=== PATIENT | male | born 1955 ===

== ENCOUNTER 2020-02-25 17:37 | Inpatient (IN) | payer MEDICARE ==
[2020-02-25 22:46] VITALS: BP 120/81
[2020-02-25] MEDS ORDERED: Acetaminophen 500 MG TAB PO PRN (22:46)
[2020-02-25] MEDS ORDERED: Maalox 30 mL Cup PO PRN (22:46)
[2020-02-25] MEDS ORDERED: Magnesium Hydroxide (MOM) 30 mL UDC PO PRN (22:46)
[2020-02-26] MEDS: Escitalopram Oxalate 5 mg Tab PO SCH (09:09)
[2020-02-26] MEDS: Multivitamin Tab PO SCH (09:10)
--- NOTE | 2020-02-26 09:59 | Psychiatric Evaluation ---
DATE OF SERVICE: 02/26/2020 HISTORY OF PRESENT ILLNESS: A 64-year-old male coming in from [facility], medically cleared, resident from a board and care, apparently hearing impaired as well, chronic depression, anxiety, possible schizophrenia. The patient noting severe depression. When I go see him, unfortunately, does not engage with me whatsoever. I tried to wake him up, but he tells me to go away, difficult [id number] unfortunately, noted to be somewhat irritable, not really conducive to interview, concerns in regard to his severe depressive symptoms, melancholy, concerns for suicide, suicidality. Although, the patient is ambivalent about these symptoms, apparent history of chronic mental illness. PAST PSYCHIATRIC HISTORY: As noted, depression, anxiety, schizophrenia. The patient was making some vague notions about suicide, stating he wants to be home in 3 days. The patient has been to [facility] in the past. FAMILY HISTORY: Unclear. SOCIAL HISTORY: Details unclear, but coming from a board and care. They are accepting him back upon further clearance and stabilization. Medications were noted. MENTAL STATUS EXAMINATION: Stated age, unkempt, little eye contact, not engaging with me, concerns about suicide, suicidality. Unclear psychotic symptoms. Insight diminished. DIAGNOSES: Major depression, unspecified; schizophrenia per documentation; anxiety, unspecified. MEDICAL: Please see full H and P. ESTIMATED LENGTH OF STAY: 7-10 days. ASSESSMENT: The patient requiring hospitalization, depressed, concerns about suicide, suicidality, also chronically mentally ill. PLAN: We will adjust medications. TREATMENT PLAN: Includes group as well as milieu therapy, increase collateral. CONDITIONS FOR DISCHARGE: Improved mood, improved affect, better control of mood symptoms. JOB# [id number]
--- NOTE | 2020-02-26 10:36 | History and Physical ---
History of Present Illness - HPI Chief Complaint: 64 y/o was transferred from [facility] for medical clearance. HPI: 64 y/o was transferred from [facility] for medical clearance. Patient was admitted to [facility] for evaluation due to suicidal ideation and severe depression. Patient was at [facility] and had been very depressed and was making comments about suicide. Patient has history Major depressive disorder, Anxiety, Diabetes, Bipolar disorder and Hearing impaired. Patient had a Psych consult and was diagnosed with Schizophrenia, Major depression, Anxiety, history of Bipolar disorder and history of Diabetes.I will follow, treat and monitor patient. Patient will continue current treatment plan as ordered. Vital Signs: Last Vital Signs Temp 98.4 F 02/26/20 06:07 Pulse 66 02/26/20 06:07 Resp 18 02/26/20 06:07 BP 132/78 02/26/20 06:07 Pulse Ox 96 02/26/20 06:07 Past Medical History Cardiovascular: Report: No Pertinent Hx Pulmonary: Report: No Pertinent Hx CREDIT RISK MANAGEMENT DIRECTOR: Report: No Pertinent Hx GI: Report: No Pertinent Hx Psych: Report: Anxiety, Bipolar, Depression, Schizophrenia Musculoskeletal: Report: No Pertinent Hx Rheumatologic: Report: No pertinent Hx Infectious Disease: Report: No Pertinent Hx Renal/: Report: No Pertinent Hx Endocrine: Report: Diabetes Dermatology: Report: No Pertinent Hx - Past Surgical History Past Surgical History: No pertinent Hx Family Medical History - Family Member Mother History Unknown: Yes Ethnicity: Unknown Social History Smoke: No Alcohol: None Drugs: None Lives: Other ([facility].) Health Maintenance Health Maintenance: Other (See chart.) - Medications Home Medications: Home Medication Medication Instructions Recorded Type Docusate Sodium [Colace] 100 mg PO BID 02/26/20 History Escitalopram Oxalate [Lexapro] 5 mg PO DAILY 02/26/20 History Oxybutynin Chloride [Oxybutynin 5 mg PO DAILY 02/26/20 History Chloride*] Pantoprazole Sodium [Protonix] 40 mg PO DAILY 02/26/20 History QUEtiapine Fumarate [SEROquel] 200 mg PO DAILY 02/26/20 History QUEtiapine Fumarate [SEROquel] 400 mg PO HS 02/26/20 History Sucralfate 1 gm PO TID 02/26/20 History metFORMIN [Glucophage] 500 mg PO BID 08/29/20 History Other Medications: Please see medication reconciliation sheet. - Allergies Allergies/Adverse Reactions: Allergies Allergy/AdvReac Type Severity Reaction Status Date / Time No Known Allergies Allergy Verified 02/25/20 22:46 Review of Systems - Review of Systems Review of Systems: Patient is withdrawn, staying to himself, appears very sad, needs closely monitoring. Constitutional: Report: No Significant Eyes: Report: No Significant ENT: Report: No Significant Respiratory: Report: No Significant Cardiovascular: Report: No Significant Gastrointestinal: Report: No Significant Genitourinary: Report: No Significant Musculoskeletal: Report: No Significant Skin: Report: No Significant Neurological: Report: Other (Very depressed mood and affect.) Physical Exam - Physical Exam HEENT: Report: Ears Nose Throat within normal limits Neck: Report: Within normal limits Cardiovascular Systems: Report: +s1/s2 noted, Regular, Rate and Rhythm Respiratory: Report: Breath Sounds are within normal limits Abdomen: Report: Non-tender to palpation Back: Report: Inspection of back is within normal limits. Extremities: Report: Non-tender to palpation. Skin: Report: Color of skin is within normal limits Neuro/Psych: Report: Depressed affect - Lab Results All Lab Results last 24 hours: Please see lab results. - Assessment Assessment: Schizophrenia. Major depression. Anxiety. History of Bipolar disorder. History of Diabetes. Hearing impaired. - Plan Plan: Psych management as per Psych. Monitor vitals, labs, diabetic diet. Continue present meds as directed. Accu-check daily, continue DM meds as directed. Supportive care. Safety precaution/Fall precaution. Continue current treatment plan as ordered. Cranial Nerve Assessment - CRANIAL NERVES alcohol swab:: Yes Distinguishes movements in peripheral field.:: Yes up, down, sideways:: Yes on forehead, cheeks and chin, chews symmetrically:: Yes FACIAL VII: upper: Frowns Symmetrically:: Yes FACIAL VII: Lower: Smiles Symmetrically:: Yes both ears:: No GLOSS-PHARYNGEAL IX: Has gag reflex:: Yes VAGUS X: Can make guttural sounds:: Yes ACCESSORY XI: Shrugs shoulders symmetrically:: Yes tremors or fasciculation's:: Yes - MOTOR spasticity, cogwheel, atrophy, tremor, asterixis, other: Yes - COORDINATION Finger to nose, heel to nicholson, BUCK, gait, Romberg: Yes - SENSORY signs, Brudzinski, Kernig, neck rigidity:: Yes - REFLEXES Brachioradials Right:: Yes Brachioradials Left:: Yes Biceps Right:: Yes Biceps Left:: Yes Triceps Right:: Yes Triceps Left:: Yes Knee Right:: Yes Knee Left:: Yes Ankle Right:: Yes Ankle Left:: Yes Babinski Right:: Yes Babinski Left:: Yes
[2020-02-27 07:19] LABS: A1C 7.2 % (4.8-5.6)
[2020-02-27] MEDS: Escitalopram Oxalate 5 mg Tab PO SCH (09:03)
[2020-02-27] MEDS: Pantoprazole 40 mg EC Tab PO SCH (09:03)
[2020-02-27] MEDS: Multivitamin Tab PO SCH (09:03)
--- NOTE | 2020-02-27 17:12 | Progress Notes ---
DATE: 02/27/2020 SUBJECTIVE: A 64-year-old male coming into [facility] due to chronic depression and schizophrenia. The patient noted to be irritable on exam, upset, slept about 9-10 hours, took Ambien, somewhat sleepy this morning. Staff noting he is frustrated, upset, gets irritable, labile, still with ongoing mood swings. Medications reviewed. Labs reviewed. Vitals were reviewed. Currently on dosing of Seroquel, Lexapro. ASSESSMENT: Difficult [id number], the patient not wanting to engage with me, somewhat tired this morning, sleepy, asked me to come back later. He does have some hearing impairment. The patient having some dietary restrictions, refusing some of his meals, likely we will get Nutrition consult during the week. PLAN: We will continue inpatient monitoring, ongoing symptoms as noted. [facility]# [id number]
[2020-02-28] MEDS: Pantoprazole 40 mg EC Tab PO SCH (08:19)
[2020-02-28] MEDS: Escitalopram Oxalate 5 mg Tab PO SCH (08:19)
[2020-02-28] MEDS: Multivitamin Tab PO SCH (08:19)
--- NOTE | 2020-02-28 22:45 | Progress Notes ---
DATE: 02/28/2020 Case was discussed with staff of the patient and reviewed records. Covering for Dr. Cortes. Also reviewed lab work and medications. A 64-year-old male who came from [facility] after medically cleared. He was in a board and care. The patient is hearing impaired as well with chronic depression and anxiety, possible schizophrenia. He has been very depressed. He is unable to engage; however, he is able to express himself by writing ____ he wants to go home. He reports he sleeps well and eats well. He was able to tell me how he did end up here. He was irritable, not well participating in any meaningful conversation. There is concern about his suicidality as he has been depressed and overwhelmed. The patient with history of chronic mental illness, history of anxiety, schizophrenia, depression, making vague statements about suicide that he wants to be home in 3 days. The patient was being hospitalized at [facility] in the past. The patient was diagnosed with depression. The patient was started on Lexapro 5 mg daily. The patient continues to look disheveled, disorganized, and internally preoccupied. He is also on Seroquel 200 mg in the morning and 400 mg at bedtime. I will be increasing his Lexapro to 10 mg a day. No side effects to the medication, no sedation, no nausea, and no extrapyramidal symptoms. We will continue to work with the patient in group therapy, milieu therapy, and adjust the medication as needed. JOB# [id number]
[2020-02-29] MEDS: Pantoprazole 40 mg EC Tab PO SCH (08:43)
[2020-02-29] MEDS: Multivitamin Tab PO SCH (08:43)
[2020-02-29] MEDS ORDERED: Menthol/Zinc Oxide Oint 113gm Tube TP PRN (18:09)
--- NOTE | 2020-02-29 18:31 | Progress Notes ---
DATE: 02/29/2020 Case was discussed with staff of the patient, reviewed records. The patient appears to be depressed. Continues to be unable to engage in a meaningful conversation. He is best if he can write. He wants to go home. He sleeps well. He eats well. No side effects with the medication, no sedation, no nausea, no extrapyramidal symptoms. He is currently on Seroquel and Lexapro with no side effects. We will continue outpatient group therapy, milieu therapy, adjust medication as needed. JOB# [id number]
[2020-03-01] MEDS: Pantoprazole 40 mg EC Tab PO SCH (08:58)
[2020-03-01] MEDS: Multivitamin Tab PO SCH (08:58)
--- NOTE | 2020-03-01 09:52 | Internal Medicine Prog Note ---
Internal Medicine Subjective - Subjective Service Date: 03/01/20 Patient seen and examined:: with staff, chart reviewed Patient is:: awake, verbal, other (Very depressed and anxiety.) Patient Complaints of:: other (Hx of Schizophrenia, Depression and Anxiety.) Per staff patient has:: no adverse event, no episodes of fall Internal Medicine Objective - Results Recent Labs: Laboratory Last Values Hemoglobin A1c 7.2 % (4.8-5.6) H 02/26/20 11:00 Triglycerides 117 mg/dL (30-150) 02/26/20 11:00 Cholesterol 117 mg/dL (<200) 02/26/20 11:00 LDL Cholesterol 69 mg/dL (0-129) 02/26/20 11:00 HDL Cholesterol 40 mg/dL (>45) L 02/26/20 11:00 - Physical Exam Vitals and I&O: Vital Signs Temp 97.6 F 03/01/20 06:41 Pulse 74 03/01/20 06:41 Resp 19 03/01/20 06:41 BP 116/65 03/01/20 06:41 Pulse Ox 97 03/01/20 06:41 Intake & Output 02/29/20 03/01/20 03/01/20 18:59 06:59 18:59 Intake Total 800 120 Balance 800 120 Intake: Oral 800 120 Other: # Voids 4 3 # Bowel Movements 0 Active Medications: Current Medications Acetaminophen (Tylenol) 650 mg PO Q4H PRN PRN Reason: Pain (Mild 1-3) Stop: 04/25/20 22:45 Acetaminophen (Tylenol Extra Strength) 1,000 mg PO Q6H PRN PRN Reason: Pain (Moderate 4-6) Stop: 04/25/20 22:45 Al Hydrox/Mg Hydrox/Simethicone (Maalox) 30 ml PO Q4HR PRN PRN Reason: GI DISTRESS Stop: 04/25/20 22:45 Last Admin: 02/28/20 03:50 Dose: 30 ml Calamine/Phenol (Calmoseptine) 1 appl TP QID PRN PRN Reason: Skin Irritation Stop: 04/29/20 18:08 Docusate Sodium (Colace) 100 mg PO BID CHERRI Stop: 04/26/20 16:59 Last Admin: 03/01/20 08:57 Dose: 100 mg Escitalopram Oxalate (Lexapro) 10 mg PO DAILY [facility]; Protocol Stop: 04/29/20 08:59 Last Admin: 03/01/20 08:57 Dose: 10 mg Ibuprofen (Motrin) 400 mg PO Q4H PRN PRN Reason: Pain (Severe 7-10) Stop: 04/25/20 22:45 Lorazepam (Ativan) 0.5 mg PO Q4HR PRN; Protocol PRN Reason: Anxiety Stop: 03/26/20 22:45 Last Admin: 02/26/20 03:30 Dose: 0.5 mg Magnesium Hydroxide (Milk Of Magnesia) 30 ml PO HS PRN PRN Reason: Constipation Metformin HCl (Glucophage) 500 mg PO BID CHERRI Stop: 04/26/20 16:59 Last Admin: 03/01/20 08:58 Dose: 500 mg Multivitamins/Vitamin C (Theragran) 1 tab PO DAILY CHERRI Stop: 04/26/20 08:59 Last Admin: 03/01/20 08:58 Dose: 1 tab Oxybutynin Chloride (Ditropan) 5 mg PO DAILY CHERRI Stop: 04/27/20 08:59 Last Admin: 03/01/20 08:58 Dose: 5 mg Pantoprazole Sodium (Protonix) 40 mg PO DAILY CHERRI Stop: 04/27/20 08:59 Last Admin: 03/01/20 08:58 Dose: 40 mg Quetiapine Fumarate (Seroquel) 200 mg PO DAILY [facility]; Protocol Stop: 04/26/20 08:59 Last Admin: 03/01/20 08:58 Dose: 200 mg Quetiapine Fumarate (Seroquel) 400 mg PO HS CHERRI; Protocol Stop: 04/26/20 20:59 Last Admin: 02/29/20 20:19 Dose: 400 mg Zolpidem Tartrate (Ambien) 5 mg PO HS PRN PRN Reason: Insomnia Stop: 04/25/20 22:45 Last Admin: 02/28/20 21:08 Dose: 5 mg Physical Exam: Patient is very depressed and anxious, will be monitored closely. General: weak, other (Irritable and agitated.) HEENT: NC/AT Neck: Supple, No JVD Lungs: CTAB Cardiovascular: RRR, Normal S1, Normal S2 Abdomen: soft, non-tender Extremities: clear Neurological: no change, disorganized Internal Medicine Assmt/Plan - Assessment Assessment: Schizophrenia. Major depression. Anxiety. History of Bipolar disorder. History of Diabetes. Hearing impaired. - Plan Plan: Psych management as per Psych. Monitor vitals, labs, diabetic diet. Continue present meds as directed. Accu-check daily, continue DM meds as directed. Supportive care. Safety precaution/Fall precaution. Continue current treatment plan as ordered. Nutritional Asmnt/Malnutr-PDOC - Dietary Evaluation Malnutrition Findings (Please click <Entered> for more info): Nutritional Asmnt/Malnutrition Start: 02/28/20 12: 53 Text: Status: Complete Freq: Protocol: Document 02/28/20 12:54 MILAN (Rec: 02/28/20 12:57 MILAN [id number] [id number]) Nutritional Asmnt/Malnutrition Patient General Information Nutritional Screening Moderate Risk Diagnosis Suicidal Ideations Pertinent Medical Hx/Surgical Hx Schizophrenia, Major Depression, Anxiety, Bipolar Disorder, Diabetes Subjective Information Pt is a 65-year-old male admitted on 02/24 d/t suicidal ideations and severe depression. Pt is eating an estimated 70% of meals since admit date (x2 days) Per Meal/ Nutrition Activity Record. Dietary is currently providing an estimated 1700 kcals and 70 gm Pro, per Pt PO intake this is providing an estimated 1200 kcals and 50gm Pro to meet 62% kcal and 77% Pro needs. Visited pt in the dining room, his speech is garbled and hard to understand , pt can answer questions and make needs known via writing. Pt medical chart makes no mention of Renal disease and pt denies any kidney related issues. Spoke with nurse Kaur regarding diet Rx recommendation. This will increase available caloric options and intake to meet estimated nutritional needs. Recommend [facility] diet. Anthropometrics HT: 6 FT WT: 173 LB (78.64 kg) BMI: 23.53 (normal) GI/ Skin Integrity GI: WNL, Soft, Non-tender BM: Not Noted I/O: 1680/Not Noted Skin: WNL, Intact Misha: 18 Diet Order: Renal, NCS, Chopped Estimated Energy Needs: ( Geriatric, CBW) 8421-7598 kcals (25-30 kcals/ kg) 80-95g Pro (1.0-1.2g/kg) 4218-7700 ml (25-30 ml/kg) Current Diet Order/ Nutrition Support Renal, NCS, Chopped Patient / S.O Can't verbalize diet edu Pertinent Medications Maalox (PRN), Colace, MOM (PRN ), Glucophage, Theragran, Protonix Pertinent Labs 02/25: A1c 7.2%, HDL 40 Nutritional Hx/Data Height 1.83 m Height (Calculated Centimeters) 182.9 Current Weight (lbs) 78.471 kg Weight (Calculated Kilograms) 78.5 Weight (Calculated Grams) 75549.5 [place] Body Weight 178 LB (80.91 kg) % [place] Body Weight 97 Body Mass Index (BMI) 23.4 Weight Status Approriate GI Symptoms Last BM Not Noted Skin Integrity/Comment: Skin: WNL, Intact Misha: 18 Estimated Nutritional Goals BEE in Kcals: Using Current wt Calories/Kcals/Kg 25-30 Kcals Calculated 8753-7268 Protein: Using Current wt Protein g/k.0-1.2 Protein Calculated 80-95 Fluid: ml 1363-3014 ml (25-30 ml/kg) Nutritional Problem 1. Problem Problem Impaired nutrient utilization Etiology r/t endocrine dysfunction Signs/Symptoms: aeb (02/25) A1c 7.2%. Malnutrition Related to Morbid Obesity Malnutrition related to morbid obesity No Intervention/Recommendation Comments [facility]. Expected Outcomes/Goals Expected Outcomes/Goals 1.PO intake to meet 75% of estimated nutritional needs. 2.Monitor PO intake, wt, nutrition related labs, and skin integrity. 3.F/U as low risk in 7-10 days , 03/06-03/09.
--- NOTE | 2020-03-01 14:18 | Progress Notes ---
DATE: 03/01/2020 Case was discussed with staff of the patient, reviewed records. The patient continues to be frustrated, easily agitated, continues to have poor insight, continues to be needing redirection. He believes he does not have a psychiatric issue ; however, he came on psychotropic medication, that mean, he has been in treatment before, unable to express himself very well, easily frustrated. No side effects with the medication, no sedation, no nausea, no extrapyramidal symptoms. We will continue outpatient group therapy, milieu therapy, adjust medication as needed. JOB# [id number] WILLIAM
[2020-03-02] MEDS: Multivitamin Tab PO SCH (08:56)
[2020-03-02] MEDS: Pantoprazole 40 mg EC Tab PO SCH (08:57)
--- NOTE | 2020-03-02 10:29 | Internal Medicine Prog Note ---
Internal Medicine Subjective - Subjective Service Date: 03/02/20 Patient seen and examined:: with staff, chart reviewed Patient is:: awake, verbal, other (Very depressed and anxiety.) Patient Complaints of:: other (Hx of Schizophrenia, Depression and Anxiety.) Per staff patient has:: no adverse event, no episodes of fall Internal Medicine Objective - Results Recent Labs: Laboratory Last Values Hemoglobin A1c 7.2 % (4.8-5.6) H 02/26/20 11:00 Triglycerides 117 mg/dL (30-150) 02/26/20 11:00 Cholesterol 117 mg/dL (<200) 02/26/20 11:00 LDL Cholesterol 69 mg/dL (0-129) 02/26/20 11:00 HDL Cholesterol 40 mg/dL (>45) L 02/26/20 11:00 - Physical Exam Vitals and I&O: Vital Signs Temp 97.5 F 03/02/20 05:51 Pulse 56 03/02/20 05:51 Resp 18 03/02/20 05:51 BP 136/77 03/02/20 05:51 Pulse Ox 97 03/02/20 05:51 Intake & Output 03/01/20 03/02/20 03/02/20 18:59 06:59 18:59 Intake Total 240 Balance 240 Intake: Oral 240 Other: # Voids 2 Active Medications: Current Medications Acetaminophen (Tylenol) 650 mg PO Q4H PRN PRN Reason: Pain (Mild 1-3) Stop: 04/25/20 22:45 Acetaminophen (Tylenol Extra Strength) 1,000 mg PO Q6H PRN PRN Reason: Pain (Moderate 4-6) Stop: 04/25/20 22:45 Al Hydrox/Mg Hydrox/Simethicone (Maalox) 30 ml PO Q4HR PRN PRN Reason: GI DISTRESS Stop: 04/25/20 22:45 Last Admin: 02/28/20 03:50 Dose: 30 ml Calamine/Phenol (Calmoseptine) 1 appl TP QID PRN PRN Reason: Skin Irritation Stop: 04/29/20 18:08 Docusate Sodium (Colace) 100 mg PO BID CHERRI Stop: 04/26/20 16:59 Last Admin: 03/02/20 08:57 Dose: 100 mg Escitalopram Oxalate (Lexapro) 10 mg PO DAILY [facility]ERRI; Protocol Stop: 04/29/20 08:59 Last Admin: 03/02/20 08:56 Dose: 10 mg Ibuprofen (Motrin) 400 mg PO Q4H PRN PRN Reason: Pain (Severe 7-10) Stop: 04/25/20 22:45 Lorazepam (Ativan) 0.5 mg PO Q4HR PRN; Protocol PRN Reason: Anxiety Stop: 03/26/20 22:45 Last Admin: 02/26/20 03:30 Dose: 0.5 mg Magnesium Hydroxide (Milk Of Magnesia) 30 ml PO HS PRN PRN Reason: Constipation Metformin HCl (Glucophage) 500 mg PO BID CHERRI Stop: 04/26/20 16:59 Last Admin: 03/02/20 08:57 Dose: 500 mg Multivitamins/Vitamin C (Theragran) 1 tab PO DAILY [facility]ERRI Stop: 04/26/20 08:59 Last Admin: 03/02/20 08:56 Dose: 1 tab Oxybutynin Chloride (Ditropan) 5 mg PO DAILY [facility]ERRI Stop: 04/27/20 08:59 Last Admin: 03/02/20 08:57 Dose: 5 mg Pantoprazole Sodium (Protonix) 40 mg PO DAILY CHERRI Stop: 04/27/20 08:59 Last Admin: 03/02/20 08:57 Dose: 40 mg Quetiapine Fumarate (Seroquel) 200 mg PO DAILY [facility]ERRI; Protocol Stop: 04/26/20 08:59 Last Admin: 03/02/20 08:57 Dose: 200 mg Quetiapine Fumarate (Seroquel) 400 mg PO HS CHERRI; Protocol Stop: 04/26/20 20:59 Last Admin: 03/01/20 20:02 Dose: 400 mg Zolpidem Tartrate (Ambien) 5 mg PO HS PRN PRN Reason: Insomnia Stop: 04/25/20 22:45 Last Admin: 02/28/20 21:08 Dose: 5 mg Physical Exam: Patient is easily agitated and having mood swings, will be monitored closely. General: weak, other (Irritable and agitated.) HEENT: NC/AT Neck: Supple, No JVD Lungs: CTAB Cardiovascular: RRR, Normal S1, Normal S2 Abdomen: soft, non-tender Extremities: clear Neurological: no change, disorganized Internal Medicine Assmt/Plan - Assessment Assessment: Schizophrenia. Major depression. Anxiety. History of Bipolar disorder. History of Diabetes. Hearing impaired. - Plan Plan: Psych management as per Psych. Monitor vitals, labs, diabetic diet. Continue present meds as directed. Accu-check daily, continue DM meds as directed. Supportive care. Safety precaution/Fall precaution. Continue current treatment plan as ordered. Nutritional Asmnt/Malnutr-PDOC - Dietary Evaluation Malnutrition Findings (Please click <Entered> for more info): Nutritional Asmnt/Malnutrition Start: 02/28/20 12: 53 Text: Status: Complete Freq: Protocol: Document 02/28/20 12:54 MILAN (Rec: 02/28/20 12:57 MILAN [email or web address] -[id number]) Nutritional Asmnt/Malnutrition Patient General Information Nutritional Screening Moderate Risk Diagnosis Suicidal Ideations Pertinent Medical Hx/Surgical Hx Schizophrenia, Major Depression, Anxiety, Bipolar Disorder, Diabetes Subjective Information Pt is a 65-year-old male admitted on 02/24 d/t suicidal ideations and severe depression. Pt is eating an estimated 70% of meals since admit date (x2 days) Per Meal/ Nutrition Activity Record. Dietary is currently providing an estimated 1700 kcals and 70 gm Pro, per Pt PO intake this is providing an estimated 1200 kcals and 50gm Pro to meet 62% kcal and 77% Pro needs. Visited pt in the dining room, his speech is garbled and hard to understand , pt can answer questions and make needs known via writing. Pt medical chart makes no mention of Renal disease and pt denies any kidney related issues. Spoke with nurse Kaur regarding diet Rx recommendation. This will increase available caloric options and intake to meet estimated nutritional needs. Recommend [facility] diet. Anthropometrics HT: 6 FT WT: 173 LB (78.64 kg) BMI: 23.53 (normal) GI/ Skin Integrity GI: WNL, Soft, Non-tender BM: Not Noted I/O: 1680/Not Noted Skin: WNL, Intact Misha: 18 Diet Order: Renal, NCS, Chopped Estimated Energy Needs: ( Geriatric, CBW) 4247-7420 kcals (25-30 kcals/ kg) 80-95g Pro (1.0-1.2g/kg) 1120-5324 ml (25-30 ml/kg) Current Diet Order/ Nutrition Support Renal, NCS, Chopped Patient / S.O Can't verbalize diet edu Pertinent Medications Maalox (PRN), Colace, MOM (PRN ), Glucophage, Theragran, Protonix Pertinent Labs 02/25: A1c 7.2%, HDL 40 Nutritional Hx/Data Height 1.83 m Height (Calculated Centimeters) 182.9 Current Weight (lbs) 78.471 kg Weight (Calculated Kilograms) 78.5 Weight (Calculated Grams) 96966.5 [place] Body Weight 178 LB (80.91 kg) % [place] Body Weight 97 Body Mass Index (BMI) 23.4 Weight Status Approriate GI Symptoms Last BM Not Noted Skin Integrity/Comment: Skin: WNL, Intact Misha: 18 Estimated Nutritional Goals BEE in Kcals: Using Current wt Calories/Kcals/Kg 25-30 Kcals Calculated 8279-0356 Protein: Using Current wt Protein g/k.0-1.2 Protein Calculated 80-95 Fluid: ml 2298-5231 ml (25-30 ml/kg) Nutritional Problem 1. Problem Problem Impaired nutrient utilization Etiology r/t endocrine dysfunction Signs/Symptoms: aeb (02/25) A1c 7.2%. Malnutrition Related to Morbid Obesity Malnutrition related to morbid obesity No Intervention/Recommendation Comments [facility]. Expected Outcomes/Goals Expected Outcomes/Goals 1.PO intake to meet 75% of estimated nutritional needs. 2.Monitor PO intake, wt, nutrition related labs, and skin integrity. 3.F/U as low risk in 7-10 days , 03/06-03/09.
--- NOTE | 2020-03-02 11:31 | Progress Notes ---
DATE: 03/02/2020 SUBJECTIVE: Case was discussed with staff of the patient, reviewed records. The patient has been staying in bed, continues to have poor insight, unable to make safe plan for self-care, unpredictable, impulsive. He is incontinent of urine. Need help with his ADLs and needs constant redirection. He is unable to speak, but he can write. He is preoccupied. he wants to go home. He continues to look disheveled, disorganized, internally preoccupied. The patient is with a history of schizophrenia; however, he is unable to express his feeling very well, preoccupied with discharge, no side effects with the medication, no sedation, no nausea, no extrapyramidal symptoms. We will continue outpatient group therapy, milieu therapy, and adjust the medication as needed. JOB# [id number] WILLIAM
[2020-03-03] MEDS: Pantoprazole 40 mg EC Tab PO SCH (08:30)
[2020-03-03] MEDS: Multivitamin Tab PO SCH (08:30)
--- NOTE | 2020-03-03 10:46 | Internal Medicine Prog Note ---
Internal Medicine Subjective - Subjective Service Date: 03/03/20 Patient seen and examined:: with staff Patient is:: awake, verbal, other (Very depressed and anxiety.) Patient Complaints of:: other (Hx of Schizophrenia, Depression and Anxiety.) Per staff patient has:: no adverse event, no episodes of fall Internal Medicine Objective - Results Recent Labs: Laboratory Last Values Hemoglobin A1c 7.2 % (4.8-5.6) H 02/26/20 11:00 Triglycerides 117 mg/dL (30-150) 02/26/20 11:00 Cholesterol 117 mg/dL (<200) 02/26/20 11:00 LDL Cholesterol 69 mg/dL (0-129) 02/26/20 11:00 HDL Cholesterol 40 mg/dL (>45) L 02/26/20 11:00 - Physical Exam Vitals and I&O: Vital Signs Temp 98 F 03/03/20 05:55 Pulse 57 03/03/20 05:55 Resp 16 03/03/20 08:00 BP 111/69 03/03/20 05:55 Pulse Ox 94 03/03/20 05:55 Intake & Output 03/02/20 03/03/20 03/03/20 18:59 06:59 18:59 Intake Total 1200 240 Balance 1200 240 Intake: Oral 1200 240 Other: # Voids 1 # Bowel Movements 1 Active Medications: Current Medications Acetaminophen (Tylenol) 650 mg PO Q4H PRN PRN Reason: Pain (Mild 1-3) Stop: 04/25/20 22:45 Acetaminophen (Tylenol Extra Strength) 1,000 mg PO Q6H PRN PRN Reason: Pain (Moderate 4-6) Stop: 04/25/20 22:45 Al Hydrox/Mg Hydrox/Simethicone (Maalox) 30 ml PO Q4HR PRN PRN Reason: GI DISTRESS Stop: 04/25/20 22:45 Last Admin: 02/28/20 03:50 Dose: 30 ml Calamine/Phenol (Calmoseptine) 1 appl TP QID PRN PRN Reason: Skin Irritation Stop: 04/29/20 18:08 Docusate Sodium (Colace) 100 mg PO BID [facility] Stop: 04/26/20 16:59 Last Admin: 03/03/20 08:30 Dose: 100 mg Escitalopram Oxalate (Lexapro) 10 mg PO DAILY [facility]; Protocol Stop: 04/29/20 08:59 Last Admin: 03/03/20 08:30 Dose: 10 mg Ibuprofen (Motrin) 400 mg PO Q4H PRN PRN Reason: Pain (Severe 7-10) Stop: 04/25/20 22:45 Lorazepam (Ativan) 0.5 mg PO Q4HR PRN; Protocol PRN Reason: Anxiety Stop: 03/26/20 22:45 Last Admin: 02/26/20 03:30 Dose: 0.5 mg Magnesium Hydroxide (Milk Of Magnesia) 30 ml PO HS PRN PRN Reason: Constipation Metformin HCl (Glucophage) 500 mg PO BID [facility] Stop: 04/26/20 16:59 Last Admin: 03/03/20 08:30 Dose: 500 mg Multivitamins/Vitamin C (Theragran) 1 tab PO DAILY [facility] Stop: 04/26/20 08:59 Last Admin: 03/03/20 08:30 Dose: 1 tab Oxybutynin Chloride (Ditropan) 5 mg PO DAILY [facility] Stop: 04/27/20 08:59 Last Admin: 03/03/20 08:30 Dose: 5 mg Pantoprazole Sodium (Protonix) 40 mg PO DAILY [facility] Stop: 04/27/20 08:59 Last Admin: 03/03/20 08:30 Dose: 40 mg Quetiapine Fumarate (Seroquel) 200 mg PO DAILY [facility]; Protocol Stop: 04/26/20 08:59 Last Admin: 03/03/20 08:30 Dose: 200 mg Quetiapine Fumarate (Seroquel) 400 mg PO HS [facility]; Protocol Stop: 04/26/20 20:59 Last Admin: 03/02/20 20:13 Dose: 400 mg Zolpidem Tartrate (Ambien) 5 mg PO HS PRN PRN Reason: Insomnia Stop: 04/25/20 22:45 Last Admin: 02/28/20 21:08 Dose: 5 mg Physical Exam: Patient requires assistance with ADLs, remains impulsive, will be monitored closely. General: weak, other (Irritable and agitated.) HEENT: NC/AT Neck: Supple, No JVD Lungs: CTAB Cardiovascular: RRR, Normal S1, Normal S2 Abdomen: soft, non-tender Extremities: clear Neurological: no change, disorganized Internal Medicine Assmt/Plan - Assessment Assessment: Schizophrenia. Major depression. Anxiety. History of Bipolar disorder. History of Diabetes. Hearing impaired. - Plan Plan: Psych management as per Psych. Monitor vitals, labs, diabetic diet. Continue present meds as directed. Accu-check daily, continue DM meds as directed. Supportive care. Safety precaution/Fall precaution. Continue current treatment plan as ordered. Nutritional Asmnt/Malnutr-PDOC - Dietary Evaluation Malnutrition Findings (Please click <Entered> for more info): Nutritional Asmnt/Malnutrition Start: 02/28/20 12: 53 Text: Status: Complete Freq: Protocol: Document 02/28/20 12:54 MILAN (Rec: 02/28/20 12:57 MILAN [email or web address] [id number]) Nutritional Asmnt/Malnutrition Patient General Information Nutritional Screening Moderate Risk Diagnosis Suicidal Ideations Pertinent Medical Hx/Surgical Hx Schizophrenia, Major Depression, Anxiety, Bipolar Disorder, Diabetes Subjective Information Pt is a 65-year-old male admitted on 02/24 d/t suicidal ideations and severe depression. Pt is eating an estimated 70% of meals since admit date (x2 days) Per Meal/ Nutrition Activity Record. Dietary is currently providing an estimated 1700 kcals and 70 gm Pro, per Pt PO intake this is providing an estimated 1200 kcals and 50gm Pro to meet 62% kcal and 77% Pro needs. Visited pt in the dining room, his speech is garbled and hard to understand , pt can answer questions and make needs known via writing. Pt medical chart makes no mention of Renal disease and pt denies any kidney related issues. Spoke with nurse Kaur regarding diet Rx recommendation. This will increase available caloric options and intake to meet estimated nutritional needs. Recommend [facility] [place] diet. Anthropometrics HT: 6 FT WT: 173 LB (78.64 kg) BMI: 23.53 (normal) GI/ Skin Integrity GI: WNL, Soft, Non-tender BM: Not Noted I/O: 1680/Not Noted Skin: WNL, Intact Misha: 18 Diet Order: Renal, NCS, Chopped Estimated Energy Needs: ( Geriatric, CBW) 0171-5641 kcals (25-30 kcals/ kg) 80-95g Pro (1.0-1.2g/kg) 9788-2828 ml (25-30 ml/kg) Current Diet Order/ Nutrition Support Renal, NCS, Chopped Patient / S.O Can't verbalize diet edu Pertinent Medications Maalox (PRN), Colace, MOM (PRN ), Glucophage, Theragran, Protonix Pertinent Labs 02/25: A1c 7.2%, HDL 40 Nutritional Hx/Data Height 1.83 m Height (Calculated Centimeters) 182.9 Current Weight (lbs) 78.471 kg Weight (Calculated Kilograms) 78.5 Weight (Calculated Grams) 49899.5 [place] Body Weight 178 LB (80.91 kg) % [place] Body Weight 97 Body Mass Index (BMI) 23.4 Weight Status Approriate GI Symptoms Last BM Not Noted Skin Integrity/Comment: Skin: WNL, Intact Misha: 18 Estimated Nutritional Goals BEE in Kcals: Using Current wt Calories/Kcals/Kg 25-30 Kcals Calculated 4667-1435 Protein: Using Current wt Protein g/k.0-1.2 Protein Calculated 80-95 Fluid: ml 3324-4740 ml (25-30 ml/kg) Nutritional Problem 1. Problem Problem Impaired nutrient utilization Etiology r/t endocrine dysfunction Signs/Symptoms: aeb (02/25) A1c 7.2%. Malnutrition Related to Morbid Obesity Malnutrition related to morbid obesity No Intervention/Recommendation Comments Recommend [facility] [place] diet. Expected Outcomes/Goals Expected Outcomes/Goals 1.PO intake to meet 75% of estimated nutritional needs. 2.Monitor PO intake, wt, nutrition related labs, and skin integrity. 3.F/U as low risk in 7-10 days , 03/06-03/09.
--- NOTE | 2020-03-03 16:32 | Progress Notes ---
DATE: 03/03/2020 Case was discussed with staff of the patient, reviewed records. The patient is out of bed today. He is socializing; however, he only communicates through writing , All what he wants to know is when he is going to be discharged. Continues to have poor insight. He is demented, confused. No side effects with the medication, no sedation, no nausea. Working on discharge plan. The patient will be going to a board and care and we will continue outpatient group therapy, milieu therapy, adjust medication as needed. JOB# [id number] MTDD
[2020-03-04] MEDS: Pantoprazole 40 mg EC Tab PO SCH (09:02)
[2020-03-04] MEDS: Multivitamin Tab PO SCH (09:02)
--- NOTE | 2020-03-04 11:10 | Internal Medicine Prog Note ---
Internal Medicine Subjective - Subjective Service Date: 03/04/20 Patient seen and examined:: with staff Patient is:: awake, verbal, other (Very depressed and anxiety.) Patient Complaints of:: other (Hx of Schizophrenia, Depression and Anxiety.) Per staff patient has:: no adverse event, no episodes of fall Internal Medicine Objective - Results Recent Labs: Laboratory Last Values Hemoglobin A1c 7.2 % (4.8-5.6) H 02/26/20 11:00 Triglycerides 117 mg/dL (30-150) 02/26/20 11:00 Cholesterol 117 mg/dL (<200) 02/26/20 11:00 LDL Cholesterol 69 mg/dL (0-129) 02/26/20 11:00 HDL Cholesterol 40 mg/dL (>45) L 02/26/20 11:00 - Physical Exam Vitals and I&O: Vital Signs Temp 98.5 F 03/04/20 06:26 Pulse 80 03/04/20 06:26 Resp 20 03/04/20 06:26 BP 118/73 03/04/20 06:26 Pulse Ox 96 03/04/20 06:26 Intake & Output 03/03/20 03/04/20 03/04/20 18:59 06:59 18:59 Intake Total 1200 360 Balance 1200 360 Intake: Oral 1200 360 Other: # Voids 2 # Bowel Movements 1 0 Active Medications: Current Medications Acetaminophen (Tylenol) 650 mg PO Q4H PRN PRN Reason: Pain (Mild 1-3) Stop: 04/25/20 22:45 Acetaminophen (Tylenol Extra Strength) 1,000 mg PO Q6H PRN PRN Reason: Pain (Moderate 4-6) Stop: 04/25/20 22:45 Al Hydrox/Mg Hydrox/Simethicone (Maalox) 30 ml PO Q4HR PRN PRN Reason: GI DISTRESS Stop: 04/25/20 22:45 Last Admin: 02/28/20 03:50 Dose: 30 ml Calamine/Phenol (Calmoseptine) 1 appl TP QID PRN PRN Reason: Skin Irritation Stop: 04/29/20 18:08 Docusate Sodium (Colace) 100 mg PO BID [facility] Stop: 04/26/20 16:59 Last Admin: 03/04/20 09:02 Dose: 100 mg Escitalopram Oxalate (Lexapro) 10 mg PO DAILY [facility]; Protocol Stop: 04/29/20 08:59 Last Admin: 03/04/20 09:02 Dose: 10 mg Ibuprofen (Motrin) 400 mg PO Q4H PRN PRN Reason: Pain (Severe 7-10) Stop: 04/25/20 22:45 Magnesium Hydroxide (Milk Of Magnesia) 30 ml PO HS PRN PRN Reason: Constipation Metformin HCl (Glucophage) 500 mg PO BID [facility] Stop: 04/26/20 16:59 Last Admin: 03/04/20 09:02 Dose: 500 mg Multivitamins/Vitamin C (Theragran) 1 tab PO DAILY [facility] Stop: 04/26/20 08:59 Last Admin: 03/04/20 09:02 Dose: 1 tab Oxybutynin Chloride (Ditropan) 5 mg PO DAILY [facility] Stop: 04/27/20 08:59 Last Admin: 03/04/20 09:02 Dose: 5 mg Pantoprazole Sodium (Protonix) 40 mg PO DAILY [facility] Stop: 04/27/20 08:59 Last Admin: 03/04/20 09:02 Dose: 40 mg Quetiapine Fumarate (Seroquel) 200 mg PO DAILY [facility]; Protocol Stop: 04/26/20 08:59 Last Admin: 03/04/20 09:02 Dose: 200 mg Quetiapine Fumarate (Seroquel) 400 mg PO HS [facility]; Protocol Stop: 04/26/20 20:59 Last Admin: 03/03/20 20:10 Dose: 400 mg Physical Exam: Patient continues to be very dis-oriented, more interactive, stating he wants to go home, still requires assistance with ADLs, will be monitored closely. General: weak, other (Irritable and agitated.) HEENT: NC/AT Neck: Supple, No JVD Lungs: CTAB Cardiovascular: RRR, Normal S1, Normal S2 Abdomen: soft, non-tender Extremities: clear Neurological: no change, disorganized Internal Medicine Assmt/Plan - Assessment Assessment: Schizophrenia. Major depression. Anxiety. History of Bipolar disorder. History of Diabetes. Hearing impaired. - Plan Plan: Psych management as per Psych. Monitor vitals, labs, diabetic diet. Continue present meds as directed. Accu-check daily, continue DM meds as directed. Supportive care. Safety precaution/Fall precaution. Continue current treatment plan as ordered. Nutritional Asmnt/Malnutr-PDOC - Dietary Evaluation Malnutrition Findings (Please click <Entered> for more info): Nutritional Asmnt/Malnutrition Start: 02/28/20 12: 53 Text: Status: Complete Freq: Protocol: Document 02/28/20 12:54 MILAN (Rec: 02/28/20 12:57 MILAN [id number]) Nutritional Asmnt/Malnutrition Patient General Information Nutritional Screening Moderate Risk Diagnosis Suicidal Ideations Pertinent Medical Hx/Surgical Hx Schizophrenia, Major Depression, Anxiety, Bipolar Disorder, Diabetes Subjective Information Pt is a 65-year-old male admitted on 02/24 d/t suicidal ideations and severe depression. Pt is eating an estimated 70% of meals since admit date (x2 days) Per Meal/ Nutrition Activity Record. Dietary is currently providing an estimated 1700 kcals and 70 gm Pro, per Pt PO intake this is providing an estimated 1200 kcals and 50gm Pro to meet 62% kcal and 77% Pro needs. Visited pt in the dining room, his speech is garbled and hard to understand , pt can answer questions and make needs known via writing. Pt medical chart makes no mention of Renal disease and pt denies any kidney related issues. Spoke with nurse Vincent regarding diet Rx recommendation. This will increase available caloric options and intake to meet estimated nutritional needs. Recommend [facility] diet. Anthropometrics HT: 6 FT WT: 173 LB (78.64 kg) BMI: 23.53 (normal) GI/ Skin Integrity GI: WNL, Soft, Non-tender BM: Not Noted I/O: 1680/Not Noted Skin: WNL, Intact Misha: 18 Diet Order: Renal, NCS, Chopped Estimated Energy Needs: ( Geriatric, CBW) 4976-0146 kcals (25-30 kcals/ kg) 80-95g Pro (1.0-1.2g/kg) 1270-1116 ml (25-30 ml/kg) Current Diet Order/ Nutrition Support Renal, NCS, Chopped Patient / S.O Can't verbalize diet edu Pertinent Medications Maalox (PRN), Colace, MOM (PRN ), Glucophage, Theragran, Protonix Pertinent Labs 02/25: A1c 7.2%, HDL 40 Nutritional Hx/Data Height 1.83 m Height (Calculated Centimeters) 182.9 Current Weight (lbs) 78.471 kg Weight (Calculated Kilograms) 78.5 Weight (Calculated Grams) 50260.5 [place] Body Weight 178 LB (80.91 kg) % [place] Body Weight 97 Body Mass Index (BMI) 23.4 Weight Status Approriate GI Symptoms Last BM Not Noted Skin Integrity/Comment: Skin: WNL, Intact Misha: 18 Estimated Nutritional Goals BEE in Kcals: Using Current wt Calories/Kcals/Kg 25-30 Kcals Calculated 5628-9932 Protein: Using Current wt Protein g/k.0-1.2 Protein Calculated 80-95 Fluid: ml 1252-3694 ml (25-30 ml/kg) Nutritional Problem 1. Problem Problem Impaired nutrient utilization Etiology r/t endocrine dysfunction Signs/Symptoms: aeb (02/25) A1c 7.2%. Malnutrition Related to Morbid Obesity Malnutrition related to morbid obesity No Intervention/Recommendation Comments Recommend [facility] diet. Expected Outcomes/Goals Expected Outcomes/Goals 1.PO intake to meet 75% of estimated nutritional needs. 2.Monitor PO intake, wt, nutrition related labs, and skin integrity. 3.F/U as low risk in 7-10 days , 03/06-03/09.
--- NOTE | 2020-03-04 13:08 | Progress Notes ---
DATE: 03/04/2020 SUBJECTIVE: The patient was seen in his room. The patient is asleep, but easily arousable. The patient appears to be guarded, easily gets frustrated, disheveled, poor impulse control. Otherwise, the patient appears to be comfortable, in no acute distress. OBJECTIVE: VITAL SIGNS: Temperature 98.1, heart rate 76, blood pressure ____, respirations 20. HEENT: Head is atraumatic and normocephalic. Eyes: Bilateral conjunctivae are clear. Bilateral pupils are equally round and reactive. NECK: Supple. No JVD. CARDIOVASCULAR: S1 and S2, without murmur. PULMONARY: Clear to auscultation. GASTROINTESTINAL: Soft and nontender without guarding. Positive bowel sounds. MUSCULOSKELETAL: No clubbing. No cyanosis noted. ASSESSMENT: 1. ____. 2. Diabetes mellitus. 3. Gastroesophageal reflux disease. 4. Overactive bladder. PLAN: We will continue to keep the patient inpatient to Psychiatric Unit. We will follow up with a psychiatrist to monitor the patient's condition and behavior. Treatment plans were discussed with the patient's nurse. Treatment plans were discussed with Dr. Darnell. JOB# [id number]
--- NOTE | 2020-03-04 14:06 | Progress Notes ---
DATE: 03/04/2020 Covering for Brock Cortes M.D. SUBJECTIVE: The patient was interviewed. Case was discussed with staff. Chart and records were reviewed. Per the staff, the patient has been sleeping better. Per the staff, the patient does get easily angered and agitated and needs constant redirection. The patient on interview is hard of hearing and therefore communication was done through other means including writing. The patient appears to be disorganized and has poor insight into his condition and has no plan for self-care at this time. MENTAL STATUS EXAMINATION: The patient appears his stated age, appears to be somewhat unkempt, strong eye contact. Disorganized thinking. Insight, judgment and impulse control appear to be quite poor at this time. ASSESSMENT AND PLAN: We will continue the patient's acute psychiatric hospitalization. We will continue medications as prescribed. We will encourage the patient to verbalize his needs and to participate in group and milieu therapy. JOB# [id number]
[2020-03-05] MEDS: Pantoprazole 40 mg EC Tab PO SCH (08:47)
[2020-03-05] MEDS: Multivitamin Tab PO SCH (08:47)
--- NOTE | 2020-03-05 10:43 | Internal Medicine Prog Note ---
Internal Medicine Subjective - Subjective Service Date: 03/05/20 Patient seen and examined:: with staff Patient is:: awake, verbal, in wheelchair, other (Very depressed and anxiety.) Patient Complaints of:: other (Hx of Schizophrenia, Depression and Anxiety.) Per staff patient has:: no adverse event, no episodes of fall Internal Medicine Objective - Results Recent Labs: Laboratory Last Values Hemoglobin A1c 7.2 % (4.8-5.6) H 02/26/20 11:00 Triglycerides 117 mg/dL (30-150) 02/26/20 11:00 Cholesterol 117 mg/dL (<200) 02/26/20 11:00 LDL Cholesterol 69 mg/dL (0-129) 02/26/20 11:00 HDL Cholesterol 40 mg/dL (>45) L 02/26/20 11:00 - Physical Exam Vitals and I&O: Vital Signs Temp 97.7 F 03/05/20 06:17 Pulse 61 03/05/20 06:17 Resp 20 03/05/20 06:17 BP 122/76 03/05/20 06:17 Pulse Ox 95 03/05/20 06:17 Intake & Output 03/04/20 03/05/20 03/05/20 18:59 06:59 18:59 Intake Total 1300 360 Balance 1300 360 Intake: Oral 1300 360 Other: # Voids 2 2 # Bowel Movements 0 0 Active Medications: Current Medications Acetaminophen (Tylenol) 650 mg PO Q4H PRN PRN Reason: Pain (Mild 1-3) Stop: 04/25/20 22:45 Acetaminophen (Tylenol Extra Strength) 1,000 mg PO Q6H PRN PRN Reason: Pain (Moderate 4-6) Stop: 04/25/20 22:45 Al Hydrox/Mg Hydrox/Simethicone (Maalox) 30 ml PO Q4HR PRN PRN Reason: GI DISTRESS Stop: 04/25/20 22:45 Last Admin: 02/28/20 03:50 Dose: 30 ml Calamine/Phenol (Calmoseptine) 1 appl TP QID PRN PRN Reason: Skin Irritation Stop: 04/29/20 18:08 Docusate Sodium (Colace) 100 mg PO BID [facility] Stop: 04/26/20 16:59 Last Admin: 03/05/20 08:46 Dose: 100 mg Escitalopram Oxalate (Lexapro) 10 mg PO DAILY [facility]; Protocol Stop: 04/29/20 08:59 Last Admin: 03/05/20 08:47 Dose: 10 mg Ibuprofen (Motrin) 400 mg PO Q4H PRN PRN Reason: Pain (Severe 7-10) Stop: 04/25/20 22:45 Magnesium Hydroxide (Milk Of Magnesia) 30 ml PO HS PRN PRN Reason: Constipation Metformin HCl (Glucophage) 500 mg PO BID [facility] Stop: 04/26/20 16:59 Last Admin: 03/05/20 08:46 Dose: 500 mg Multivitamins/Vitamin C (Theragran) 1 tab PO DAILY [facility] Stop: 04/26/20 08:59 Last Admin: 03/05/20 08:47 Dose: 1 tab Oxybutynin Chloride (Ditropan) 5 mg PO DAILY [facility] Stop: 04/27/20 08:59 Last Admin: 03/05/20 08:47 Dose: 5 mg Pantoprazole Sodium (Protonix) 40 mg PO DAILY [facility] Stop: 04/27/20 08:59 Last Admin: 03/05/20 08:47 Dose: 40 mg Quetiapine Fumarate (Seroquel) 200 mg PO DAILY [facility]; Protocol Stop: 04/26/20 08:59 Last Admin: 03/05/20 08:46 Dose: 200 mg Quetiapine Fumarate (Seroquel) 400 mg PO HS [facility]; Protocol Stop: 04/26/20 20:59 Last Admin: 03/04/20 21:26 Dose: 400 mg Physical Exam: Patient is easily agitated and frustrated, will be monitored closely. General: weak, other (Irritable and agitated.) HEENT: NC/AT Neck: Supple, No JVD Lungs: CTAB Cardiovascular: RRR, Normal S1, Normal S2 Abdomen: soft, non-tender Extremities: clear Neurological: no change, disorganized Internal Medicine Assmt/Plan - Assessment Assessment: Schizophrenia. Major depression. Anxiety. History of Bipolar disorder. History of Diabetes. Hearing impaired. - Plan Plan: Psych management as per Psych. Monitor vitals, labs, diabetic diet. Continue present meds as directed. Accu-check daily, continue DM meds as directed. Supportive care. Safety precaution/Fall precaution. Continue current treatment plan as ordered. Nutritional Asmnt/Malnutr-PDOC - Dietary Evaluation Malnutrition Findings (Please click <Entered> for more info): Nutritional Asmnt/Malnutrition Start: 02/28/20 12: 53 Text: Status: Complete Freq: Protocol: Document 02/28/20 12:54 MILAN (Rec: 02/28/20 12:57 MILAN [id number] [id number]) Nutritional Asmnt/Malnutrition Patient General Information Nutritional Screening Moderate Risk Diagnosis Suicidal Ideations Pertinent Medical Hx/Surgical Hx Schizophrenia, Major Depression, Anxiety, Bipolar Disorder, Diabetes Subjective Information Pt is a 65-year-old male admitted on 02/24 d/t suicidal ideations and severe depression. Pt is eating an estimated 70% of meals since admit date (x2 days) Per Meal/ Nutrition Activity Record. Dietary is currently providing an estimated 1700 kcals and 70 gm Pro, per Pt PO intake this is providing an estimated 1200 kcals and 50gm Pro to meet 62% kcal and 77% Pro needs. Visited pt in the dining room, his speech is garbled and hard to understand , pt can answer questions and make needs known via writing. Pt medical chart makes no mention of Renal disease and pt denies any kidney related issues. Spoke with nurse Vincent regarding diet Rx recommendation. This will increase available caloric options and intake to meet estimated nutritional needs. Recommend [facility] diet. Anthropometrics HT: 6 FT WT: 173 LB (78.64 kg) BMI: 23.53 (normal) GI/ Skin Integrity GI: WNL, Soft, Non-tender BM: Not Noted I/O: 1680/Not Noted Skin: WNL, Intact Misha: 18 Diet Order: Renal, NCS, Chopped Estimated Energy Needs: ( Geriatric, CBW) 6017-9093 kcals (25-30 kcals/ kg) 80-95g Pro (1.0-1.2g/kg) 2375-0286 ml (25-30 ml/kg) Current Diet Order/ Nutrition Support Renal, NCS, Chopped Patient / S.O Can't verbalize diet edu Pertinent Medications Maalox (PRN), Colace, MOM (PRN ), Glucophage, Theragran, Protonix Pertinent Labs 02/25: A1c 7.2%, HDL 40 Nutritional Hx/Data Height 1.83 m Height (Calculated Centimeters) 182.9 Current Weight (lbs) 78.471 kg Weight (Calculated Kilograms) 78.5 Weight (Calculated Grams) 54751.5 [place] Body Weight 178 LB (80.91 kg) % [place] Body Weight 97 Body Mass Index (BMI) 23.4 Weight Status Approriate GI Symptoms Last BM Not Noted Skin Integrity/Comment: Skin: WNL, Intact Misha: 18 Estimated Nutritional Goals BEE in Kcals: Using Current wt Calories/Kcals/Kg 25-30 Kcals Calculated 0085-5642 Protein: Using Current wt Protein g/k.0-1.2 Protein Calculated 80-95 Fluid: ml 9421-4469 ml (25-30 ml/kg) Nutritional Problem 1. Problem Problem Impaired nutrient utilization Etiology r/t endocrine dysfunction Signs/Symptoms: aeb (02/25) A1c 7.2%. Malnutrition Related to Morbid Obesity Malnutrition related to morbid obesity No Intervention/Recommendation Comments Recommend [facility] diet. Expected Outcomes/Goals Expected Outcomes/Goals 1.PO intake to meet 75% of estimated nutritional needs. 2.Monitor PO intake, wt, nutrition related labs, and skin integrity. 3.F/U as low risk in 7-10 days , 03/06-03/09.
[2020-03-06] MEDS: Multivitamin Tab PO SCH (08:20)
[2020-03-06] MEDS: Pantoprazole 40 mg EC Tab PO SCH (08:21)
--- NOTE | 2020-03-06 10:30 | Internal Medicine Prog Note ---
Internal Medicine Subjective - Subjective Service Date: 03/06/20 Patient seen and examined:: with staff Patient is:: awake, verbal, in wheelchair, other (Very depressed and anxiety.) Patient Complaints of:: other (Hx of Schizophrenia, Depression and Anxiety.) Per staff patient has:: no adverse event, no episodes of fall Internal Medicine Objective - Results Recent Labs: Laboratory Last Values Hemoglobin A1c 7.2 % (4.8-5.6) H 02/26/20 11:00 Triglycerides 117 mg/dL (30-150) 02/26/20 11:00 Cholesterol 117 mg/dL (<200) 02/26/20 11:00 LDL Cholesterol 69 mg/dL (0-129) 02/26/20 11:00 HDL Cholesterol 40 mg/dL (>45) L 02/26/20 11:00 - Physical Exam Vitals and I&O: Vital Signs Temp 98.6 F 03/05/20 20:21 Pulse 73 03/05/20 20:21 Resp 20 03/05/20 20:21 BP 128/63 03/05/20 20:21 Pulse Ox 97 03/05/20 20:21 Intake & Output 03/05/20 03/06/20 03/06/20 18:59 06:59 18:59 Intake Total 1200 240 Balance 1200 240 Intake: Oral 1200 240 Other: # Voids 4 2 # Bowel Movements 0 0 Active Medications: Current Medications Acetaminophen (Tylenol) 650 mg PO Q4H PRN PRN Reason: Pain (Mild 1-3) Stop: 04/25/20 22:45 Acetaminophen (Tylenol Extra Strength) 1,000 mg PO Q6H PRN PRN Reason: Pain (Moderate 4-6) Stop: 04/25/20 22:45 Al Hydrox/Mg Hydrox/Simethicone (Maalox) 30 ml PO Q4HR PRN PRN Reason: GI DISTRESS Stop: 04/25/20 22:45 Last Admin: 02/28/20 03:50 Dose: 30 ml Calamine/Phenol (Calmoseptine) 1 appl TP QID PRN PRN Reason: Skin Irritation Stop: 04/29/20 18:08 Docusate Sodium (Colace) 100 mg PO BID [facility] Stop: 04/26/20 16:59 Last Admin: 03/06/20 08:20 Dose: 100 mg Escitalopram Oxalate (Lexapro) 10 mg PO DAILY [facility]; Protocol Stop: 04/29/20 08:59 Last Admin: 03/06/20 08:20 Dose: 10 mg Ibuprofen (Motrin) 400 mg PO Q4H PRN PRN Reason: Pain (Severe 7-10) Stop: 04/25/20 22:45 Magnesium Hydroxide (Milk Of Magnesia) 30 ml PO HS PRN PRN Reason: Constipation Metformin HCl (Glucophage) 500 mg PO BID [facility] Stop: 04/26/20 16:59 Last Admin: 03/06/20 08:20 Dose: 500 mg Multivitamins/Vitamin C (Theragran) 1 tab PO DAILY [facility] Stop: 04/26/20 08:59 Last Admin: 03/06/20 08:20 Dose: 1 tab Oxybutynin Chloride (Ditropan) 5 mg PO DAILY [facility] Stop: 04/27/20 08:59 Last Admin: 03/06/20 08:21 Dose: 5 mg Pantoprazole Sodium (Protonix) 40 mg PO DAILY [facility] Stop: 04/27/20 08:59 Last Admin: 03/06/20 08:21 Dose: 40 mg Quetiapine Fumarate (Seroquel) 200 mg PO DAILY [facility]; Protocol Stop: 04/26/20 08:59 Last Admin: 03/06/20 08:21 Dose: 200 mg Quetiapine Fumarate (Seroquel) 400 mg PO HS [facility]; Protocol Stop: 04/26/20 20:59 Last Admin: 03/05/20 20:23 Dose: 400 mg Physical Exam: Patient is demented, confused, gets easily frustrated and agitated, will be monitored closely. General: weak, other (Irritable and agitated.) HEENT: NC/AT Neck: Supple, No JVD Lungs: CTAB Cardiovascular: RRR, Normal S1, Normal S2 Abdomen: soft, non-tender Extremities: clear Neurological: no change, disorganized Internal Medicine Assmt/Plan - Assessment Assessment: Schizophrenia. Major depression. Anxiety. History of Bipolar disorder. History of Diabetes. Hearing impaired. - Plan Plan: Psych management as per Psych. Monitor vitals, labs, diabetic diet. Continue present meds as directed. Accu-check daily, continue DM meds as directed. Supportive care. Safety precaution/Fall precaution. Continue current treatment plan as ordered. Nutritional Asmnt/Malnutr-PDOC - Dietary Evaluation Malnutrition Findings (Please click <Entered> for more info): Nutritional Asmnt/Malnutrition Start: 02/28/20 12: 53 Text: Status: Complete Freq: Protocol: Document 02/28/20 12:54 MILAN (Rec: 02/28/20 12:57 MILAN [id number]) Nutritional Asmnt/Malnutrition Patient General Information Nutritional Screening Moderate Risk Diagnosis Suicidal Ideations Pertinent Medical Hx/Surgical Hx Schizophrenia, Major Depression, Anxiety, Bipolar Disorder, Diabetes Subjective Information Pt is a 65-year-old male admitted on 02/24 d/t suicidal ideations and severe depression. Pt is eating an estimated 70% of meals since admit date (x2 days) Per Meal/ Nutrition Activity Record. Dietary is currently providing an estimated 1700 kcals and 70 gm Pro, per Pt PO intake this is providing an estimated 1200 kcals and 50gm Pro to meet 62% kcal and 77% Pro needs. Visited pt in the dining room, his speech is garbled and hard to understand , pt can answer questions and make needs known via writing. Pt medical chart makes no mention of Renal disease and pt denies any kidney related issues. Spoke with nurse Kaur regarding diet Rx recommendation. This will increase available caloric options and intake to meet estimated nutritional needs. Recommend [facility] diet. Anthropometrics HT: 6 FT WT: 173 LB (78.64 kg) BMI: 23.53 (normal) GI/ Skin Integrity GI: WNL, Soft, Non-tender BM: Not Noted I/O: 1680/Not Noted Skin: WNL, Intact Misha: 18 Diet Order: Renal, NCS, Chopped Estimated Energy Needs: ( Geriatric, CBW) 8020-2032 kcals (25-30 kcals/ kg) 80-95g Pro (1.0-1.2g/kg) 1874-5870 ml (25-30 ml/kg) Current Diet Order/ Nutrition Support Renal, NCS, Chopped Patient / S.O Can't verbalize diet edu Pertinent Medications Maalox (PRN), Colace, MOM (PRN ), Glucophage, Theragran, Protonix Pertinent Labs 02/25: A1c 7.2%, HDL 40 Nutritional Hx/Data Height 1.83 m Height (Calculated Centimeters) 182.9 Current Weight (lbs) 78.471 kg Weight (Calculated Kilograms) 78.5 Weight (Calculated Grams) 97505.5 [place] Body Weight 178 LB (80.91 kg) % [place] Body Weight 97 Body Mass Index (BMI) 23.4 Weight Status Approriate GI Symptoms Last BM Not Noted Skin Integrity/Comment: Skin: WNL, Intact Misha: 18 Estimated Nutritional Goals BEE in Kcals: Using Current wt Calories/Kcals/Kg 25-30 Kcals Calculated 9608-5259 Protein: Using Current wt Protein g/k.0-1.2 Protein Calculated 80-95 Fluid: ml 0608-5581 ml (25-30 ml/kg) Nutritional Problem 1. Problem Problem Impaired nutrient utilization Etiology r/t endocrine dysfunction Signs/Symptoms: aeb (02/25) A1c 7.2%. Malnutrition Related to Morbid Obesity Malnutrition related to morbid obesity No Intervention/Recommendation Comments Recommend [facility] diet. Expected Outcomes/Goals Expected Outcomes/Goals 1.PO intake to meet 75% of estimated nutritional needs. 2.Monitor PO intake, wt, nutrition related labs, and skin integrity. 3.F/U as low risk in 7-10 days , 03/06-03/09.
--- NOTE | 2020-03-07 05:31 | Psych Progress Note ---
Psych Progress Note - Intro Date of Progress Note: 03/06/20 - Assessment Assessment: patient remains disorganized, confused. he needs constant redirection he was seen bothering other patients needed to be redirected away. no plan for care. isolated and withdrawn mostly in his room and gets easily angered and agitated. - Vitals, I&O Vitals: Vital Signs - 24 hr 03/06/20 03/06/20 03/06/20 15:07 20:00 20:41 Temp 98.6 F 97.9 F HR 71 69 RR 20 20 20 BP 117/67 112/62 O2 Sat % 94 95 - Objective Psych General Appearance: Report: No eye-contact Psych Behavior: Report: Uncooperative Psych Mood: Report: Anxious Psych Affect: Report: Labile Psych Cognition: Report: Confused Psych Insight: Report: Impaired Psych Judgement: Report: Impaired - Plan Plan: cont meds - Review of Relevant Data Review of Relevant Data: I have reviewed the following items and time nathen (where applicable) has been applied. - Medications Current Medications: Current Medications Acetaminophen (Tylenol) 650 mg PO Q4H PRN PRN Reason: Pain (Mild 1-3) Stop: 04/25/20 22:45 Acetaminophen (Tylenol Extra Strength) 1,000 mg PO Q6H PRN PRN Reason: Pain (Moderate 4-6) Stop: 04/25/20 22:45 Al Hydrox/Mg Hydrox/Simethicone (Maalox) 30 ml PO Q4HR PRN PRN Reason: GI DISTRESS Stop: 04/25/20 22:45 Last Admin: 02/28/20 03:50 Dose: 30 ml Calamine/Phenol (Calmoseptine) 1 appl TP QID PRN PRN Reason: Skin Irritation Stop: 04/29/20 18:08 Docusate Sodium (Colace) 100 mg PO BID [facility] Stop: 04/26/20 16:59 Last Admin: 03/06/20 16:36 Dose: 100 mg Escitalopram Oxalate (Lexapro) 10 mg PO DAILY [facility]; Protocol Stop: 04/29/20 08:59 Last Admin: 03/06/20 08:20 Dose: 10 mg Ibuprofen (Motrin) 400 mg PO Q4H PRN PRN Reason: Pain (Severe 7-10) Stop: 04/25/20 22:45 Magnesium Hydroxide (Milk Of Magnesia) 30 ml PO HS PRN PRN Reason: Constipation Metformin HCl (Glucophage) 500 mg PO BID [facility] Stop: 04/26/20 16:59 Last Admin: 03/06/20 16:36 Dose: 500 mg Multivitamins/Vitamin C (Theragran) 1 tab PO DAILY [facility] Stop: 04/26/20 08:59 Last Admin: 03/06/20 08:20 Dose: 1 tab Oxybutynin Chloride (Ditropan) 5 mg PO DAILY [facility] Stop: 04/27/20 08:59 Last Admin: 03/06/20 08:21 Dose: 5 mg Pantoprazole Sodium (Protonix) 40 mg PO DAILY [facility] Stop: 04/27/20 08:59 Last Admin: 03/06/20 08:21 Dose: 40 mg Quetiapine Fumarate (Seroquel) 200 mg PO DAILY [facility]; Protocol Stop: 04/26/20 08:59 Last Admin: 03/06/20 08:21 Dose: 200 mg Quetiapine Fumarate (Seroquel) 400 mg PO HS [facility]; Protocol Stop: 04/26/20 20:59 Last Admin: 03/06/20 20:42 Dose: 400 mg
--- NOTE | 2020-03-07 05:31 | Psych Progress Note ---
Psych Progress Note - Intro Date of Progress Note: 03/05/20 - Assessment Assessment: patient remains disorganized, confused. he needs constant redirection he was seen bothering other patients needed to be redirected away. no plan for care. isolated and withdrawn mostly in his room and gets easily angered and agitated. - Vitals, I&O Vitals: Vital Signs - 24 hr 03/06/20 03/06/20 03/06/20 15:07 20:00 20:41 Temp 98.6 F 97.9 F HR 71 69 RR 20 20 20 BP 117/67 112/62 O2 Sat % 94 95 - Objective Psych General Appearance: Report: No eye-contact Psych Behavior: Report: Uncooperative Psych Mood: Report: Anxious Psych Affect: Report: Labile Psych Cognition: Report: Confused Psych Insight: Report: Impaired Psych Judgement: Report: Impaired - Plan Plan: cont meds - Review of Relevant Data Review of Relevant Data: I have reviewed the following items and time nathen (where applicable) has been applied. - Medications Current Medications: Current Medications Acetaminophen (Tylenol) 650 mg PO Q4H PRN PRN Reason: Pain (Mild 1-3) Stop: 04/25/20 22:45 Acetaminophen (Tylenol Extra Strength) 1,000 mg PO Q6H PRN PRN Reason: Pain (Moderate 4-6) Stop: 04/25/20 22:45 Al Hydrox/Mg Hydrox/Simethicone (Maalox) 30 ml PO Q4HR PRN PRN Reason: GI DISTRESS Stop: 04/25/20 22:45 Last Admin: 02/28/20 03:50 Dose: 30 ml Calamine/Phenol (Calmoseptine) 1 appl TP QID PRN PRN Reason: Skin Irritation Stop: 04/29/20 18:08 Docusate Sodium (Colace) 100 mg PO BID [facility] Stop: 04/26/20 16:59 Last Admin: 03/06/20 16:36 Dose: 100 mg Escitalopram Oxalate (Lexapro) 10 mg PO DAILY [facility]; Protocol Stop: 04/29/20 08:59 Last Admin: 03/06/20 08:20 Dose: 10 mg Ibuprofen (Motrin) 400 mg PO Q4H PRN PRN Reason: Pain (Severe 7-10) Stop: 04/25/20 22:45 Magnesium Hydroxide (Milk Of Magnesia) 30 ml PO HS PRN PRN Reason: Constipation Metformin HCl (Glucophage) 500 mg PO BID [facility] Stop: 04/26/20 16:59 Last Admin: 03/06/20 16:36 Dose: 500 mg Multivitamins/Vitamin C (Theragran) 1 tab PO DAILY [facility] Stop: 04/26/20 08:59 Last Admin: 03/06/20 08:20 Dose: 1 tab Oxybutynin Chloride (Ditropan) 5 mg PO DAILY [facility] Stop: 04/27/20 08:59 Last Admin: 03/06/20 08:21 Dose: 5 mg Pantoprazole Sodium (Protonix) 40 mg PO DAILY [facility] Stop: 04/27/20 08:59 Last Admin: 03/06/20 08:21 Dose: 40 mg Quetiapine Fumarate (Seroquel) 200 mg PO DAILY [facility]; Protocol Stop: 04/26/20 08:59 Last Admin: 03/06/20 08:21 Dose: 200 mg Quetiapine Fumarate (Seroquel) 400 mg PO HS [facility]; Protocol Stop: 04/26/20 20:59 Last Admin: 03/06/20 20:42 Dose: 400 mg
[2020-03-07] MEDS: Pantoprazole 40 mg EC Tab PO SCH (08:19)
[2020-03-07] MEDS: Multivitamin Tab PO SCH (08:19)
--- NOTE | 2020-03-07 13:42 | Discharge Summary ---
DATE OF DISCHARGE: 03/07/2020 IDENTIFYING INFORMATION: The patient is a 64-year-old male. HISTORY OF PRESENT ILLNESS: The patient came from a board and care after cleared by [facility]. His hearing is impaired, has chronic depression, anxiety, possible schizophrenia. The patient has severe depression. The patient left engaged in conversation, always talked about discharge. He was told Dr. Alfredo to go ahead and try to evaluate him. He was irritable, not really conductive to interviews, the patient regarding suicide and homicide, he would not discuss it; however, the patient diagnosed with depression with possible schizophrenia. COURSE IN THE HOSPITAL: The patient was seen by Dr. Alfredo at the beginning and apparently he put him on Seroquel 200 mg daily and 400 mg at bedtime. i start him on Lexapro 10 mg a day. The patient is not acting anyway dangerous while he is here. He was sleeping well, eating well. He was no longer having any intent to harm herself or anyone. We were able to talk only through the right thing. He denied any intent to harm herself or anyone. He denied any auditory or visual hallucination. No paranoia. So, as he improved, we felt he could be discharged to a lesser level of care. The patient can take care of his ADLs with prompting. The patient cannot function well socially because he is hard of hearing, but he can function well by writing. FINAL DIAGNOSES: Major depression, recurrent, severe, with psychosis. MEDICAL DIAGNOSIS: As per medical doctor. The patient will follow up with psychiatrist and primary care physician and therapist. EXPECTED OUTCOME: Stable if the patient complies with the above. JOB# [id number] WILLIAM
== END 2020-03-07 13:30 | DRG 885 ==
LOC: GERO 20:48
PROVIDERS: ADMIT Psychiatry & Neurology Psychiatry; ATTEND Psychiatry & Neurology Psychiatry
DX: F33.3 Major depressive disorder, recurrent, severe with psychotic symptoms (principal); F41.9 Anxiety disorder, unspecified; E11.9 Type 2 diabetes mellitus without complications; H91.90 Unspecified hearing loss, unspecified ear; K21.9 Gastro-esophageal reflux disease without esophagitis; N32.81 Overactive bladder
CPT/HCPCS: 36415-UA; 80061-TC; 83036-90; 90899; G0410; Z7610